=== PATIENT | female | born 1975 | race Caucasian/White ===

== ENCOUNTER 2018-12-10 08:58 | Emergency (ER) | payer OTHER ==
[2018-12-10] MEDS: CYCLOBENZAPRINE 10 MG TAB PO (09:49)
[2018-12-10] MEDS: KETOROLAC 30 MG INJ IM (09:49)
== END 2018-12-10 10:09 | disposition home or self-care (01) ==
LOC: FTE 10:09
DX: S86.911A Strain of unspecified muscle(s) and tendon(s) at lower leg level, right leg, initial encounter (principal); J45.909 Unspecified asthma, uncomplicated; I10 Essential (primary) hypertension; F17.210 Nicotine dependence, cigarettes, uncomplicated; X58.XXXA Exposure to other specified factors, initial encounter; Y92.9 Unspecified place or not applicable
CPT/HCPCS: 81025; 96372; 99284-25